=== PATIENT | female | born 1975 | race African-American/Black ===

== ENCOUNTER 2022-08-03 11:53 | Day surgery (SDC) | payer OTHER ==
[2022-08-02 10:55] VITALS: BMI 29.9
[2022-08-03 14:01] VITALS: RESP 19
[2022-08-03 14:03] VITALS: BP 131/85; PULSE 60; TEMP 97.1
== END 2022-08-03 14:03 | disposition home or self-care (01) ==
LOC: FASU-ENDO 11:53
PROVIDERS: ATTEND Internal Medicine Gastroenterology
PROC: 0DB68ZX Excision of Stomach, Via Natural or Artificial Opening Endoscopic, Diagnostic (ICD-10-PCS; 2022-08-03)
PROC: 0DB48ZX Excision of Esophagogastric Junction, Via Natural or Artificial Opening Endoscopic, Diagnostic (ICD-10-PCS; 2022-08-03)
PROC: 0DB98ZX Excision of Duodenum, Via Natural or Artificial Opening Endoscopic, Diagnostic (ICD-10-PCS; principal; 2022-08-03 13:15)
DX: D64.9 Anemia, unspecified (principal); K29.50 Unspecified chronic gastritis without bleeding; B96.81 Helicobacter pylori [H. pylori] as the cause of diseases classified elsewhere; K20.90 Esophagitis, unspecified without bleeding
CPT/HCPCS: 84703; 88305-TC; 88342-TC